=== PATIENT | female | born 1940 | race Caucasian/White ===

== ENCOUNTER 2021-01-14 07:05 | Day surgery (SDC) | payer MEDICARE ==
[~2021-01-14] VITALS: Ht 162.6 cm; Wt 58.1 kg
[~2021-01-14 07:05] MED LIST: 0.9%NACL 1000ML 1,000 ML IV ONE; ALBU6.7H9 IH; AZEL137S11 NS; CHLO25TA3 PO; DILT120C12 PO; LISI20TA24 PO; METF-910 PO; OXYB10TA30 PO; PANT20TA18 PO; PREG75 PO; ROPI0.5T7 PO; ROSU10TA22 PO; UBID100C10 PO; VITAD50000 PO; VITAMIN B12 IM
[2021-01-14 07:22] VITALS: BP 170/53
[2021-01-14] MEDS ORDERED: CLOBETASOL CREAM TP (08:35)
[2021-01-14] MEDS ORDERED: ESTRADIOL CREAM TP (08:35)
[2021-01-14] MEDS ORDERED: QVAR IH (08:35)
[2021-01-14] MEDS ORDERED: PROPOFOL 10 MG/ML 20ML VIAL IV ONE (09:06)
[2021-01-14 09:25] VITALS: BP 132/46
[2021-01-14 09:30] VITALS: BP 132/46
[2021-01-14 09:35] VITALS: BP 154/68
[2021-01-14 09:40] VITALS: BP 144/58
[2021-01-14 10:00] VITALS: BP 150/60
== END 2021-01-14 10:00 | disposition home or self-care (01) ==
LOC: ENDO 07:05 → DAH 07:05 → ENDO 10:00
PROVIDERS: ATTEND Internal Medicine Gastroenterology
DX: K22.2 Esophageal obstruction (principal); Z20.822 Contact with and (suspected) exposure to COVID-19; I10 Essential (primary) hypertension; E11.9 Type 2 diabetes mellitus without complications; J45.909 Unspecified asthma, uncomplicated; E78.2 Mixed hyperlipidemia; R68.2 Dry mouth, unspecified; I45.10 Unspecified right bundle-branch block; Z79.899 Other long term (current) drug therapy; Z88.0 Allergy status to penicillin; Z90.710 Acquired absence of both cervix and uterus; Z90.11 Acquired absence of right breast and nipple; Z72.89 Other problems related to lifestyle
CPT/HCPCS: 43249; 82948 ×2; 87635; 93005; A4215; A4221; A4222; A4223; A4606; A4620; A4663; C9803; J2704; J7030

== ENCOUNTER 2023-06-10 05:53 | Day surgery (SDC) | payer MEDICARE ==
[2023-06-10] VITALS (11 sets, daily range): BP systolic 103–150; BP diastolic 41–83; PULSE 62–72; RESP 14–18
[~2023-06-10 05:53] MED LIST changes: -0.9%NACL 1000ML 1,000 ML IV ONE; +ALBU6.7H14 IH; -ALBU6.7H9 IH; -CHLO25TA3 PO; +CHOL200026 PO; +CYAN-35 PO; -DILT120C12 PO; +FAMO20TA8 PO; +FLUT1AER4 IH; +LISI10TA24 PO; -LISI20TA24 PO; -OXYB10TA30 PO; -PANT20TA18 PO; +PREG50CA64 PO; -PREG75 PO; -ROPI0.5T7 PO; +TRAZ-185 PO; -UBID100C10 PO; -VITAD50000 PO; -VITAMIN B12 IM; +[UNRECOGNIZED DRUG - OTHER] PO
[2023-06-10] MEDS ORDERED: 0.9%NACL 1000ML 1,000 ML IV ONE (06:14)
[2023-06-10] MEDS ORDERED: LIDOCAINE HCL 1% 20 ML VIAL ONE (07:19)
[2023-06-10] MEDS ORDERED: PROPOFOL 10 MG/ML 20ML VIAL IV ONE (07:19)
== END 2023-06-10 09:35 | disposition home or self-care (01) ==
LOC: DAH 05:53 → ENDO 05:53
PROVIDERS: ATTEND Internal Medicine Gastroenterology
DX: R13.10 Dysphagia, unspecified (principal); K44.9 Diaphragmatic hernia without obstruction or gangrene; K22.2 Esophageal obstruction; K29.50 Unspecified chronic gastritis without bleeding; K31.A0 Gastric intestinal metaplasia, unspecified; K21.9 Gastro-esophageal reflux disease without esophagitis; R68.2 Dry mouth, unspecified; K59.04 Chronic idiopathic constipation; I10 Essential (primary) hypertension; J45.909 Unspecified asthma, uncomplicated; E78.2 Mixed hyperlipidemia; E11.9 Type 2 diabetes mellitus without complications; Z88.0 Allergy status to penicillin; Z88.8 Allergy status to other drugs, medicaments and biological substances; Z90.710 Acquired absence of both cervix and uterus; Z90.11 Acquired absence of right breast and nipple; Z79.84 Long term (current) use of oral hypoglycemic drugs
CPT/HCPCS: 43249; 82948 ×2; 43239; J7030 ×3; J2704; C1726; A4215 ×4; A7002 ×2; A4222 ×2; A4221; A4663 ×2; A4216 ×2; A4620 ×2; A4223 ×2; A4606 ×2; J3490

== ENCOUNTER 2024-11-08 05:53 | Day surgery (SDC) | payer MEDICARE ==
[~2024-11-08] VITALS: Ht 162.6 cm; Wt 54.4 kg
[2024-11-08] VITALS (11 sets, daily range): BP systolic 114–174; BP diastolic 48–73; PULSE 60–68; RESP 15–18; TEMP 97–97.3
[~2024-11-08 05:53] MED LIST changes: -LISI10TA24 PO; +LISI20TA24 PO; +METF-444 PO; -METF-910 PO; -ROSU10TA22 PO; +ROSUVASTATIN PO
[2024-11-08] MEDS: 0.9%NACL 1000ML 1,000 ML IV ONE (07:03)
[2024-11-08] MEDS ORDERED: proPOFol 10 MG/ML 20ML VIAL IV ONE (08:13)
--- NOTE | 2024-11-08 09:45 | NUR ---
Full and complete discharge instructions given to Patient and Family both verbally and in writing. Explained GI procedure precautions and follow up. All questions answered. PIV removed with catheter tip intact. Home with Family W/C to POV.
== END 2024-11-08 09:40 | disposition home or self-care (01) ==
LOC: DAH 05:53 → ENDO 05:53
PROVIDERS: ATTEND Internal Medicine Gastroenterology
DX: R13.10 Dysphagia, unspecified (principal); K22.2 Esophageal obstruction; K29.50 Unspecified chronic gastritis without bleeding; I10 Essential (primary) hypertension; E11.9 Type 2 diabetes mellitus without complications; J45.909 Unspecified asthma, uncomplicated; K21.9 Gastro-esophageal reflux disease without esophagitis; K44.9 Diaphragmatic hernia without obstruction or gangrene; K59.04 Chronic idiopathic constipation; R68.2 Dry mouth, unspecified; E78.2 Mixed hyperlipidemia; Z88.0 Allergy status to penicillin; Z88.8 Allergy status to other drugs, medicaments and biological substances; Z85.3 Personal history of malignant neoplasm of breast; Z90.710 Acquired absence of both cervix and uterus; Z79.899 Other long term (current) drug therapy
CPT/HCPCS: 43249; 82948; 43239; J7030; J2704; C1726; A4620; A4215 ×2; A4223; A4222; A4221; A4663; A4606; J3490